=== PATIENT | male | born 1985 | race Two or more races ===

== ENCOUNTER 2024-01-05 13:15 | Emergency (ER) | payer OTHER ==
[~2024-01-05] VITALS: Ht 162.6 cm; Wt 106.6 kg
[2024-01-05] MEDS ORDERED: NIFEDIPINE 20 MG CAPSULE PO ONE (13:45)
[2024-01-05] MEDS ORDERED: NIFEDIPINE 10 MG CAPSULE PO ONE ×3 (14:25→15:33)
[2024-01-05] MEDS ORDERED: COZAAR25 MG PO (14:56)
== END 2024-01-05 15:41 | disposition home or self-care (01) ==
LOC: ER 13:16
DX: I10 Essential (primary) hypertension (principal); Z88.0 Allergy status to penicillin